=== PATIENT | male | born 1990 | race Caucasian/White ===

== ENCOUNTER 2016-12-04 02:14 | Inpatient (IN) | payer OTHER ==
[~2016-12-04] VITALS: Ht 175.3 cm; Wt 93.1 kg
--- NOTE | 2016-12-04 02:27 | PD ---
HPI Chief Complaint: Psychiatric Symptoms Time Seen by Provider: 02:19 Travel History International Travel<30 days: No Contact w/Intl Traveler<30days: No Traveled to known affect area: No History of Present Illness HPI Patient is a 26-year-old male presents with EMS and police for evaluation on a Chan act. Patient apparently was at a [facility] and according to law enforcement he admitted to a friend that he had been sleeping with his girlfriend. He states his been very depressed and has father drink himself to . He told a friend that he was going to kill himself tonight by bolusing himself insulin by his insulin pump. On arrival he is very withdrawn admits to depression and suicidal ideation but does not want to really provide any history. He will answer questions about his physical status and denies any physical complaints, denies any chest pain short of breath abdominal pain nausea vomiting diarrhea headache neck pain or back pain. According to his insulin pump E did bolus himself 14 units of regular insulin today. [facility] Past Medical History Narrative Medical Diabetes Past Surgical History Surgical History: No Previous Surgery Social History Alcohol Use: Yes Tobacco Use: No Allergies-Medications (Allergen,Severity, Reaction): Coded Allergies: UNOBTAINABLE (Unverified , 12/04/16) Review of Systems Except as stated in HPI: all other systems reviewed are Neg Physical Exam Narrative GENERAL: Well-developed well-nourished, no obvious distress. SKIN: Focused skin assessment warm/dry. HEAD: Atraumatic. Normocephalic. EYES: Pupils equal and round. No scleral icterus. No injection or drainage. ENT: No nasal bleeding or discharge. Mucous membranes pink and moist. NECK: Trachea midline. No JVD. CARDIOVASCULAR: Regular rate and rhythm. No murmur appreciated. RESPIRATORY: No accessory muscle use. Clear to auscultation. Breath sounds equal bilaterally. GASTROINTESTINAL: Abdomen soft, non-tender, nondistended. Hepatic and splenic margins not palpable. MUSCULOSKELETAL: No obvious deformities. No clubbing. No cyanosis. No edema. NEUROLOGICAL: Awake and alert. No obvious cranial nerve deficits. Motor grossly within normal limits. Normal speech. PSYCHIATRIC: Endorses suicidal ideation, depressed mood and depressed affect. Data Data Last Documented VS Vital Signs Date Time Temp Pulse Resp B/P Pulse Ox O2 Delivery O2 Flow Rate FiO2 12/04/16 06:37 87 18 130/87 97 Room Air Orders Complete Blood Count With Diff (12/04/16 02:25) Comprehensive Metabolic Panel (12/04/16 02:25) Urinalysis - C+S If Indicated (12/04/16 02:25) Electrocardiogram (12/04/16 02:25) Psych Screen (12/04/16 02:25) Drug Screen, Random Urine (12/04/16 02:25) Alcohol (Ethanol) (12/04/16 02:25) Salicylates (Aspirin) (12/04/16 02:25) Tylenol (Acetaminophen) (12/04/16 02:25) Sodium Chlor 0.9% 1000 Ml Inj (Ns 1000 M (12/04/16 02:30) Thiamine Inj (Thiamine Inj) (12/04/16 02:30) Labs Laboratory Tests Test 12/04/16 02:43 White Blood Count 5.9 TH/MM3 Red Blood Count 4.95 MIL/MM3 Hemoglobin 14.9 GM/DL Hematocrit 43.1 % Mean Corpuscular Volume 87.1 FL Mean Corpuscular Hemoglobin 30.0 PG Mean Corpuscular Hemoglobin 34.5 % Concent Red Cell Distribution Width 13.2 % Platelet Count 290 TH/MM3 Mean Platelet Volume 8.3 FL Neutrophils (%) (Auto) 68.7 % Lymphocytes (%) (Auto) 24.1 % Monocytes (%) (Auto) 5.8 % Eosinophils (%) (Auto) 0.5 % Basophils (%) (Auto) 0.9 % Neutrophils # (Auto) 4.1 TH/MM3 Lymphocytes # (Auto) 1.4 TH/MM3 Monocytes # (Auto) 0.3 TH/MM3 Eosinophils # (Auto) 0.0 TH/MM3 Basophils # (Auto) 0.1 TH/MM3 CBC Comment DIFF FINAL Differential Comment Sodium Level 141 MEQ/L Potassium Level 3.9 MEQ/L Chloride Level 105 MEQ/L Carbon Dioxide Level 25.7 MEQ/L Anion Gap 10 MEQ/L Blood Urea Nitrogen 10 MG/DL Creatinine 1.22 MG/DL Estimat Glomerular Filtration 72 ML/MIN Rate Random Glucose 128 MG/DL Calcium Level 7.8 MG/DL Total Bilirubin 0.3 MG/DL Aspartate Amino Transf 29 U/L (AST/SGOT) Alanine Aminotransferase 36 U/L (ALT/SGPT) Alkaline Phosphatase 82 U/L Total Protein 7.4 GM/DL Albumin 3.9 GM/DL Salicylates Level LESS THAN 1.7 MG/DL Acetaminophen Level LESS THAN 2.0 MCG/ML Ethyl Alcohol Level 233 MG/DL MDM Medical Decision Making Medical Screen Exam Complete: Yes Emergency Medical Condition: Yes Differential Diagnosis Hypoglycemia, alcohol intoxication, suicide attempt, depression. Narrative Course Patient roomed in the emergency department, initial sugar in the field was in the 40s, he was given D10 in the field. He was watched for 3 hours in the emergency department sugar checked multiple times and within normal limits. Basic labs are reassuring. His resting comfortably. At this time he is stable for psychiatric evaluation and disposition. Diagnosis Primary Impression: Hypoglycemia Additional Impression: Suicide attempt Condition: Stable Manish Cheema MD Dec 04, 2016 02:27
[2016-12-04] MEDS ORDERED: SODIUM CHLOR 0.9% 1000 ML INJ 1,000 ML IV ONE (02:30)
[2016-12-04] MEDS ORDERED: THIAMINE INJ 100 MG in SODIUM CHLORIDE 0.9% INJ 100 ML IV ONE (02:30)
[2016-12-04 02:56] LABS: AUTOMATED NEUTROPHIL # 4.1 TH/MM3 (1.8-7.7); BASOPHIL # 0.1 TH/MM3 (0-0.2); BASOPHIL % 0.9 % (0.0-2.0); EOSINOPHIL % 0.5 % (0.0-4.0); HEMATOCRIT 43.1 % (39.0-51.0); HEMO FLAGS DIFF FINAL; LYMPH % 24.1 % (9.0-44.0); LYMPHOCYTE # 1.4 TH/MM3 (1.0-4.8); MEAN CELL VOLUME 87.1 FL (80.0-100.0); MEAN CORPUSCULAR HGB CONC 34.5 % (32.0-36.0); MONO % 5.8 % (0.0-8.0); NEUT % 68.7 % (16.0-70.0); PLATELET COUNT 290 TH/MM3 (150-450); RED BLOOD COUNT 4.95 MIL/MM3 (4.50-5.90); RED CELL DISTRIBUTION WIDTH 13.2 % (11.6-17.2); WHITE BLOOD COUNT 5.9 TH/MM3 (4.0-11.0)
[2016-12-04 03:20] LABS: ALKALINE PHOSPHATASE 82 U/L (45-117); TOTAL BILIRUBIN ADULT 0.3 MG/DL (0.2-1.0)
[2016-12-04 03:33] LABS: ACETAMINOPHEN LESS THAN 2.0 MCG/ML (10.0-30.0); ALT (GPT) 36 U/L (12-78); ANION GAP 10 MEQ/L (5-15); AST (GOT) 29 U/L (15-37); BICARBONATE 25.7 MEQ/L (21.0-32.0); BLOOD UREA NITROGEN 10 MG/DL (7-18); CHLORIDE 105 MEQ/L (98-107); GLOMERULAR FILTRATION RATE 72 ML/MIN (>89); POTASSIUM 3.9 MEQ/L (3.5-5.1); SODIUM (NA) 141 MEQ/L (136-145)
[2016-12-04 06:37] VITALS: BP 130/87; PULSE 87; RESP 18; O2SAT 97
[2016-12-04] MEDS ORDERED: DEXTROSE 50% IN WATER 50 ML VIAL(D50) IV PRN ×2 (07:30→12:00)
[2016-12-04] MEDS ORDERED: GLUCAGON 1 MG/ML VIAL OTHER PRN ×2 (07:30→12:00)
[2016-12-04 07:57] LABS: BLOOD, URINE NEG (NEG); COMMENT (UR) CULT NOT INDICATED; CULTURE IF INDICATED CULT NOT INDICATED; GLUCOSE,URINE NEG (NEG); KETONE, URINE NEG (NEG); NITRITE,URINE NEG (NEG); PH, URINE 5.5 (5.0-8.5); URINE COLOR LIGHT-YELLOW (YELLW/STRAW)
[2016-12-04 08:08] LABS: AMPHETAMINE, URINE NEG (NEG); BARBITURATES, URINE NEG (NEG); COCAINE, URINE NEG (NEG)
[2016-12-04] MEDS ORDERED: HUMALOG SQ (08:11)
[2016-12-04] MEDS ORDERED: ALUMINUM/MAGNESIUM/SIMETH 30 ML CUP PO PRN (09:45)
[2016-12-04] MEDS ORDERED: FLUMAZENIL 0.5 MG/5 ML VIAL IV PUSH PRN (09:45)
[2016-12-04] MEDS ORDERED: LORazepam 0.5 MG TAB PO PRN (09:45)
[2016-12-04] MEDS ORDERED: LORazepam 2 MG TAB PO PRN (09:45)
[2016-12-04] MEDS ORDERED: MAGNESIUM HYDROXIDE SUSP 30 ML CUP PO PRN (09:45)
[2016-12-04] MEDS ORDERED: LORazepam 1 MG TAB PO PRN ×2 (09:45)
[2016-12-04] MEDS ORDERED: ACETAMINOPHEN 325 MG TAB PO PRN (09:45)
[2016-12-04] MEDS ORDERED: LORazepam 2 MG/ML VIAL IV PUSH PRN ×4 (09:45)
[2016-12-04] MEDS ORDERED: LORazepam 2 MG/ML VIAL IM PRN ×2 (09:45)
--- NOTE | 2016-12-04 09:55 | HHI.HP ---
Provisional Diagnosis Admission Date [place] I. Adjustment disorder with depressed mood, r/o major depressive disorder, alcohol use disorder [place] II. Deferred [place] III. Insulin-dependent diabetes mellitus [place] IV. Poor social and family support [place] V. 40 Certification of Person's Competence To Provide Express and Informed Consent I have personally examined Toño Coelho , a person being served at [facility] on, Dec 04, 2016 09:43. Express and informed consent means consent voluntarily given in writing, by a competent person, after sufficient explanation and disclosure of the subject matter involved to enable the person to make a knowing and willful decision without any element of force, fraud, deceit, duress, or other form of constraint or coercion. This person is 18 years of age or older, is not now known to be incompetent to consent to treatment with a guardian advocate, and does not have a health care surrogate or proxy currently making medical treatment decisions. I have found this person to be one of the following: [] Competent to provide express and informed consent, as defined above, for voluntary admission to this facility and is competent to provide express and informed consent for treatment. He/she has the consistent capacity to make well reasoned, willful, and knowing decisions concerning his or her medical or mental health treatment. The person fully and consistently understands the purpose of the admission for examination/placement and is fully capable of personally exercising all rights assured under [place] [] Incompetent to provide express and informed consent to voluntary admission, and this is incompetent to provide express and informed consent to treatment. The person must be transferred to involuntary status and a petition for a guardian advocate filed with the Circuit Court. [X] Refusing to provide express and informed consent to voluntary admission but is competent to provide express and informed consent for treatment. The person must be discharged or transferred to involuntary status. Form shall be completed within 24 hours of a person's arrival at the receiving facility and filed in the clinical record of each person: 1. Admitted on a voluntary basis 2. Permitted to provide express and informed consent to his/her own treatment 3. Allowed to transfer from involuntary to voluntary status 4. Prior to permitting a person to consent to his or her own treatment after having been previously found incompetent to consent to treatment. History of Present Illness Capacity: Has Capacity HPI The patient is a 26-year-old man, domiciled with friends and [place], employed, single, without any previous psychiatric history, no previous psychiatric hospitalizations, no previous suicidal attempts, alcohol use disorder, medical history of insulin-dependent diabetes mellitus, who presents with EMS and police for evaluation on a Chan act. Patient apparently was at a [facility] and according to law enforcement he admitted to a friend that he had been sleeping with his girlfriend. He states his been very depressed and has father drink himself to . He told a friend that he was going to kill himself tonight by bolusing himself insulin by his insulin pump to . On arrival he is very withdrawn admits to depression and suicidal ideation but does not want to really provide any history. With redirection patient does say that he preferred to be and he doesn't want to live anymore at this moment, but refused to answer any further question. Patient also reports that he was drinking last night, but not drunk. He denies the use of illicit drugs, reports use of occasional alcohol. Review of Systems Constitutional: DENIES: Diaphoretic episodes, Fatigue, Fever, Weight gain, Weight loss, Chills, Dizziness, Change in appetite, Night Sweats Endocrine: DENIES: Heat/cold intolerance, Polydipsia, Polyuria, Polyphagia Eyes: DENIES: Blurred vision, Diplopia, Eye inflammation, Eye pain, Vision loss , Photosensitivity, Double Vision Ears, nose, mouth, throat: DENIES: Tinnitus, Hearing loss, Vertigo, Nasal discharge, Oral lesions, Throat pain, Hoarseness, Ear Pain, Running Nose, Epistaxis, Sinus Pain, Toothache, Odynophagia Respiratory: DENIES: Apneas, Cough, Snoring, Wheezing, Hemoptysis, Sputum production, Shortness of breath Cardiovascular: DENIES: Chest pain, Palpitations, Syncope, Dyspnea on Exertion , PND, Lower Extremity Edema, Orthopnea, Claudication Gastrointestinal: DENIES: Abdominal pain, Black stools, Bloody stools, Constipation, Diarrhea, Nausea, Vomiting, Difficulty Swallowing, Anorexia Musculoskeletal: DENIES: Joint pain, Muscle aches, Stiffness, Joint Swelling, Back pain, Neck pain Integumentary: DENIES: Abnormal pigmentation, Nail changes, Pruritus, Rash Hematologic/lymphatic: DENIES: Bruising, Lymphadenopathy Immunologic/allergic: DENIES: Eczema, Urticaria Psychiatric: DENIES: Anxiety, Confusion, Mood changes, Depression, Hallucinations, Agitation, Suicidal Ideation, Homicidal Ideation, Delusions Past Psych History Violence risk - self (6 mos) Increased Substance Abuse History Drugs/Alcohol past 12 months Use alcohol occasionally Past Family Social History Coded Allergies: UNOBTAINABLE (Unverified , 12/04/16) Reported Medications Insulin Lispro (Human) Inj (Humalog Inj)1,000 Unit/10 Ml Vial1-9 Units SQ ACHS #1 VIAL Ref 0 Max dose at bedtime:( )units; sugars< 70,(0)units; sugars 150-199,(1)unit; sugars 200-249,(3)units; sugars 250-299,(5)units; sugars 300-349,(7)units; sugars more than 349,(9)units. 12/04/16 Current Medications Medications (Trade) Dose Ordered Sig/Ovi Route Start Time Stop Time Status Last Admin (D50w (Vial) Inj) 50 ml UNSCH PRN IV 12/04/16 07:30 (Glucagon Inj) 1 mg UNSCH PRN OTHER 12/04/16 07:30 Social History Patient is from [place], single, he is employed, lives with friends in [place] Patient's Strengths (min. 2) Under observation Physical Exam No withdrawal symptoms, no tremors, no EPS, no stiffness present Vital Signs Vital Signs Date Time Temp Pulse Resp B/P Pulse Ox O2 Delivery O2 Flow Rate FiO2 12/04/16 06:37 87 18 130/87 97 Room Air Lab Results Labs Laboratory Tests Test 12/04/16 02:43 White Blood Count 5.9 TH/MM3 Red Blood Count 4.95 MIL/MM3 Hemoglobin 14.9 GM/DL Hematocrit 43.1 % Mean Corpuscular Volume 87.1 FL Mean Corpuscular Hemoglobin 30.0 PG Mean Corpuscular Hemoglobin 34.5 % Concent Red Cell Distribution Width 13.2 % Platelet Count 290 TH/MM3 Mean Platelet Volume 8.3 FL Neutrophils (%) (Auto) 68.7 % Lymphocytes (%) (Auto) 24.1 % Monocytes (%) (Auto) 5.8 % Eosinophils (%) (Auto) 0.5 % Basophils (%) (Auto) 0.9 % Neutrophils # (Auto) 4.1 TH/MM3 Lymphocytes # (Auto) 1.4 TH/MM3 Monocytes # (Auto) 0.3 TH/MM3 Eosinophils # (Auto) 0.0 TH/MM3 Basophils # (Auto) 0.1 TH/MM3 CBC Comment DIFF FINAL Differential Comment Sodium Level 141 MEQ/L Potassium Level 3.9 MEQ/L Chloride Level 105 MEQ/L Carbon Dioxide Level 25.7 MEQ/L Anion Gap 10 MEQ/L Blood Urea Nitrogen 10 MG/DL Creatinine 1.22 MG/DL Estimat Glomerular Filtration 72 ML/MIN Rate Random Glucose 128 MG/DL Calcium Level 7.8 MG/DL Total Bilirubin 0.3 MG/DL Aspartate Amino Transf 29 U/L (AST/SGOT) Alanine Aminotransferase 36 U/L (ALT/SGPT) Alkaline Phosphatase 82 U/L Total Protein 7.4 GM/DL Albumin 3.9 GM/DL Salicylates Level LESS THAN 1.7 MG/DL Acetaminophen Level LESS THAN 2.0 MCG/ML Ethyl Alcohol Level 233 MG/DL Mental Status Examination Appearance man, multiple tattoos, athletic, uncooperative, oppositional and resistant Speech: Hesitant, Slow Memory: Unremarkable Thought Process: Goal Directed, Linear Thought Content: Unremarkable Language Adequate grammar and structural sentences and vocabulary Fund of Knowledge Limited due to lack of cooperation Attention and Concentration: Abnormal Suicidal Ideation: Yes Previous Suicide Attempts: Yes Previous Homicide Attempts: No Judgment: Poor Affect: Sad Affect if Inappropriate: Blunt Mood: Sad Motor Activity: Normal gait Assessment & Plan Problem List: (1) Adjustment disorder with depressed mood Assessment & Plan: On psychiatric evaluation patient is reluctant to provide meaningful information to complete the psychiatric assessment. However, patient does report repeatedly suicidal ideation with the plan of overdosing with insulin. On longitudinal observation in the ER the patient has been isolative, not talking, objectively depressed, staring. Since patient seems to pose an elevator risk of danger to himself, he will be admitted in the med psych unit for stabilization and safety. Will consult psychiatry for second opinion, hospital is to follow-up insulin-dependent diabetes, since patient endorses occasional use of alcohol and BAL was 233, will place in [facility]. 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 ICD Code: F43.21 Assessment & Plan Estimated LOS: Ben Arriaga MD Dec 04, 2016 09:54
[2016-12-04] MEDS: NICOTINE 21 MG/24 HR PATCH T-DERMAL SCH (11:00)
[2016-12-04 11:31] VITALS: BP 146/92; PULSE 114; RESP 18; O2SAT 99
[2016-12-04] MEDS: INSULIN ASPART SUPPLEMENTAL SCALE SQ SCH ×3 (11:37→20:24)
--- NOTE | 2016-12-04 12:52 | PD.CONS ---
[facility] By Ben Arriaga M.D. Reason for Consult diabetes type I Primary Care Physician No Primary Care Physician Diagnoses: History of Present Illness Written by Zeeshan Bocanegra PA-C, acting as scribe for Dr. Robby Moser, on 12/04/16 at 12:52. Mr. Coelho is 26 yo with history of Diabetes Mellitus I and no other health history. Per the medical record, he has been depressed for several months. Early on the evening of 12/03/16 he was at a alliance party and told a friend he was depressed and considering giving himself a fatal bolus of insulin. He was subsequently brought to [facility] [place] and police under Chan act. Upon current interview Mr. Coelho reported having diabetes since age 7 as well as being "born with anxiety and depression"; A1c is reported to be "about 7 ". He denied fever, cough, shortness of breath, abdominal pain, NVD, altered bowel or bladder habits. He noted depression has been present "for a while." A 10 pt ROS was completed and, except as noted above, was negative. Review of Systems Except as stated in HPI: all other systems reviewed are Neg Past Family Social History Allergies: Coded Allergies: No Known Allergies (Unverified , 12/04/16) Past Medical History Diabetes mellitus I since age 7. Anxiety and depression. Past Surgical History Pt denied surgical history. Reported Medications Reported Meds & Active Scripts Active Reported Humalog Inj (Insulin Human Lispro) 1,000 Unit/10 Ml Vial 1-9 Units SQ ACHS Max dose at bedtime:( )units; sugars< 70,(0)units; sugars 150-199,(1)unit; sugars 200-249,(3)units; sugars 250-299,(5)units; sugars 300-349,(7)units; sugars more than 349,(9)units. Active Ordered Medications Current Medications Medications (Trade) Dose Ordered Sig/Ovi Route Start Time Stop Time Status Last Admin (D50w (Vial) Inj) 50 ml UNSCH PRN IV 12/04/16 07:30 (Glucagon Inj) 1 mg UNSCH PRN OTHER 12/04/16 07:30 (Ativan) 1 mg Q6H PRN PO 12/04/16 09:45 (Ativan Inj) 1 mg Q6H PRN IM 12/04/16 09:45 (Tylenol) 650 mg Q4H PRN PO 12/04/16 09:45 (Milk Of Magnesia Liq) 30 ml DAILY PRN PO 12/04/16 09:45 (Mag-Al Plus Susp Liq) 30 ml Q6H PRN PO 12/04/16 09:45 (Habitrol 21 Mg Patch.24 Hr) 1 patch DAILY T-DERMAL 12/04/16 11:00 (Romazicon Inj) 0.2 mg Q1M PRN IV PUSH 12/04/16 09:45 (Ativan) 1 mg Q4H PRN PO 12/04/16 09:45 (Ativan Inj) 1 mg Q4H PRN IV PUSH 12/04/16 09:45 (Ativan) 2 mg Q2H PRN PO 12/04/16 09:45 (Ativan Inj) 2 mg Q2H PRN IV PUSH 12/04/16 09:45 (Ativan Inj) 2 mg Q1H PRN IV PUSH 12/04/16 09:45 (Ativan Inj) 2 mg Q15M PRN IV PUSH 12/04/16 09:45 Miscellaneous Information 1 HS T-DERMAL 12/04/16 21:00 Family History Father- had depression and alcoholism, at 56 yo. Mother-Depression no other health issues reported. Social History Pt denied nicotine use. Alcohol use was denied. Illicit/Recreational drug use was denied. Physical Exam Vital Signs Vital Signs Date Time Temp Pulse Resp B/P Pulse Ox O2 Delivery O2 Flow Rate FiO2 12/04/16 11:31 114 18 146/92 99 Room Air 12/04/16 06:37 87 18 130/87 97 Room Air 12/04/16 02:25 18 Physical Exam GENERAL: This is a well-nourished, well-developed patient, in no mild emotional distress. SKIN: No rashes, ecchymoses or lesions. Cool and dry. Multiple tattoos present. HEAD: Atraumatic. Normocephalic. No temporal or scalp tenderness. EYES: Pupils equal round and reactive. Extraocular motions intact. No scleral icterus. No injection or drainage. ENT: Nose without bleeding or purulent drainage. Airway patent. NECK: Trachea midline. No lymphadenopathy. Supple and nontender. CARDIOVASCULAR: Regular rate and rhythm without murmurs, gallops, or rubs. RESPIRATORY: Clear to auscultation. Breath sounds equal bilaterally. No wheezes , rales, or rhonchi. GASTROINTESTINAL: Abdomen soft, non-tender, nondistended. No hepato- splenomegaly or guarding. MUSCULOSKELETAL: Extremities without clubbing, cyanosis, or edema. No joint tenderness, effusion, or edema noted. NEUROLOGICAL: Awake and alert. Cranial nerves II through XII intact. Motor and sensory grossly within normal limits. Five out of 5 muscle strength in all muscle groups. Speech was clear and fluent. Affect flat. Mood depressed. Laboratory Laboratory Tests Test 12/04/16 12/04/16 02:43 07:25 White Blood Count 5.9 Red Blood Count 4.95 Hemoglobin 14.9 Hematocrit 43.1 Mean Corpuscular Volume 87.1 Mean Corpuscular Hemoglobin 30.0 Mean Corpuscular Hemoglobin 34.5 Concent Red Cell Distribution Width 13.2 Platelet Count 290 Mean Platelet Volume 8.3 Neutrophils (%) (Auto) 68.7 Lymphocytes (%) (Auto) 24.1 Monocytes (%) (Auto) 5.8 Eosinophils (%) (Auto) 0.5 Basophils (%) (Auto) 0.9 Neutrophils # (Auto) 4.1 Lymphocytes # (Auto) 1.4 Monocytes # (Auto) 0.3 Eosinophils # (Auto) 0.0 Basophils # (Auto) 0.1 CBC Comment DIFF FINAL Differential Comment Sodium Level 141 Potassium Level 3.9 Chloride Level 105 Carbon Dioxide Level 25.7 Anion Gap 10 Blood Urea Nitrogen 10 Creatinine 1.22 Estimat Glomerular Filtration 72 Rate Random Glucose 128 Calcium Level 7.8 Total Bilirubin 0.3 Aspartate Amino Transf 29 (AST/SGOT) Alanine Aminotransferase 36 (ALT/SGPT) Alkaline Phosphatase 82 Total Protein 7.4 Albumin 3.9 Salicylates Level LESS THAN 1.7 Acetaminophen Level LESS THAN 2.0 Ethyl Alcohol Level 233 Urine Color LIGHT-YELLOW Urine Turbidity CLEAR Urine pH 5.5 Urine Specific [place] 1.008 Urine Protein NEG Urine Glucose (UA) NEG Urine Ketones NEG Urine Occult Blood NEG Urine Nitrite NEG Urine Bilirubin NEG Urine Urobilinogen LESS THAN 2.0 Urine Leukocyte Esterase NEG Urine WBC 1 Microscopic Urinalysis Comment CULT NOT INDICATED Urine Opiates Screen NEG Urine Barbiturates Screen NEG Urine Amphetamines Screen NEG Urine Benzodiazepines Screen NEG Urine Cocaine Screen NEG Urine Cannabinoids Screen NEG Result Diagram: 12/04/16 0243 12/04/16 0243 Assessment and Plan Assessment and Plan Mr. Coelho is 26 yo with history of Diabetes Mellitus I and no other health history. Per the medical record, he has been depressed for several months. Early on the evening of 12/03/16 he was at a alliance party and told a friend he was depressed and considering giving himself a fatal bolus of insulin. He was subsequently brought to [facility] [place] and police under Chan act. Depression Anxiety Suicidal Ideation -managed by psychiatry. Diabetes Mellitus type I -Low dose sliding scale insulin. -Finger sticks q ac and hs -Hemoglobin A1c ordered, Thank you for the consult. Hospitalist team will continue to follow this patient. This note was transcribed by kota Bocanegra PA-C. I, Dr. Breanna Moser personally performed the history, physical exam, and medical decision making; and confirmed the accuracy of the information in the transcribed note. Authenticated by Dr. Breanna Moser on 12/04/16 at 12:52. This note was transcribed by kota Bocanegra PA-C. I, Dr. Breanna Moser personally performed the history, physical exam, and medical decision making; and confirmed the accuracy of the information in the transcribed note. Authenticated by Dr. Breanna Moser on 12/04/16 at 12:52. Discussed Condition With Patient Zeeshan Bocanegra Jr. Dec 04, 2016 12:52 Breanna Moser MD Dec 04, 2016 13:51
[2016-12-04 14:08] VITALS: BP 136/73; PULSE 90; RESP 18; TEMP 98.5; O2SAT 98
[2016-12-04] MEDS ORDERED: NON-FORMULARY DRUG (Insulin Lispro (Human) Inj (Humalog Inj) 0 UNITS) SQ SCH (16:00)
--- NOTE | 2016-12-04 17:06 | EKG ---
Date Performed: 12/04/2016 Time Performed: 02:39:27 PTAGE: 26 years EKG: Sinus rhythm NORMAL ECG NO PREVIOUS TRACING DOCTOR: Kurtis Kramer Interpretating Date/Time 12/04/2016 17:04:33
[2016-12-04] MEDS: REMOVE OLD NICODERM (NICOTINE) PATCH T-DERMAL SCH (20:20)
[2016-12-05] MEDS: INSULIN ASPART SUPPLEMENTAL SCALE SQ SCH ×4 (06:23→21:54)
[2016-12-05] MEDS: NICOTINE 21 MG/24 HR PATCH T-DERMAL SCH (09:00)
[2016-12-05] MEDS: INSULIN DETEMIR 100 UNITS/ML VIAL SQ SCH ×2 (09:15→21:55)
--- NOTE | 2016-12-05 11:10 | PD.PSY.CON ---
Provisional Diagnosis Admission Date Dec 04, 2016 at 9:43 am [place] I. Adjustment disorder with depressed mood, r/o major depressive disorder, alcohol use disorder [place] II. Deferred [place] III. Insulin-dependent diabetes mellitus [place] IV. Poor social and family support [place] V. 40 History of Present Illness Service Psychiatry Consult Requested By Primary Care Physician No Primary Care Physician HPI Pt seen and discussed with staff. He was admitted to [facility] under BA secondary to suicidal ideation with plan. Pt was intoxicated at time of presentation. The patient is a 26-year-old man, domiciled with friends and [place], employed, single, without any previous psychiatric history, no previous psychiatric hospitalizations, no previous suicidal attempts, alcohol use disorder, medical history of insulin-dependent diabetes mellitus, who presents with EMS and police for evaluation on a Chan act. Patient apparently was at a bachelor green party [facility] and according to law enforcement he admitted to a friend that he had been sleeping with his girlfriend. He states his been very depressed and has father drink himself to . He told a friend that he was going to kill himself tonight by bolusing himself insulin by his insulin pump to . On arrival he is very withdrawn admits to depression and suicidal ideation but does not want to really provide any history. With redirection patient does say that he preferred to be and he doesn't want to live anymore at this moment, but refused to answer any further question. Patient also reports that he was drinking last night, but not drunk. He denies the use of illicit drugs, reports use of occasional alcohol. Past Family Social History Coded Allergies: No Known Allergies (Unverified , 12/04/16) Reported Medications Insulin Lispro (Human) Inj (Humalog Inj)1,000 Unit/10 Ml Vial1-9 Units SQ ACHS #1 VIAL Ref 0 Max dose at bedtime:( )units; sugars< 70,(0)units; sugars 150-199,(1)unit; sugars 200-249,(3)units; sugars 250-299,(5)units; sugars 300-349,(7)units; sugars more than 349,(9)units. 12/04/16 Current Medications Medications (Trade) Dose Ordered Sig/Ovi Route Start Time Stop Time Status Last Admin (D50w (Vial) Inj) 50 ml UNSCH PRN IV 12/04/16 07:30 (Glucagon Inj) 1 mg UNSCH PRN OTHER 12/04/16 07:30 (Ativan) 1 mg Q6H PRN PO 12/04/16 09:45 12/04/16 16:59 (Ativan Inj) 1 mg Q6H PRN IM 12/04/16 09:45 (Tylenol) 650 mg Q4H PRN PO 12/04/16 09:45 (Milk Of Magnesia Liq) 30 ml DAILY PRN PO 12/04/16 09:45 (Mag-Al Plus Susp Liq) 30 ml Q6H PRN PO 12/04/16 09:45 (Habitrol 21 Mg Patch.24 Hr) 1 patch DAILY T-DERMAL 12/04/16 11:00 (Romazicon Inj) 0.2 mg Q1M PRN IV PUSH 12/04/16 09:45 (Ativan) 1 mg Q4H PRN PO 12/04/16 09:45 (Ativan Inj) 1 mg Q4H PRN IV PUSH 12/04/16 09:45 (Ativan) 2 mg Q2H PRN PO 12/04/16 09:45 (Ativan Inj) 2 mg Q2H PRN IV PUSH 12/04/16 09:45 (Ativan Inj) 2 mg Q1H PRN IV PUSH 12/04/16 09:45 (Ativan Inj) 2 mg Q15M PRN IV PUSH 12/04/16 09:45 Miscellaneous Information 1 HS T-DERMAL 12/04/16 21:00 (Levemir Inj) 5 units Q12HR SQ 12/05/16 09:15 12/05/16 09:15 Patient's Strengths (min. 2) Under observation Physical Exam Vital Signs Vital Signs Date Time Temp Pulse Resp B/P Pulse Ox O2 Delivery O2 Flow Rate FiO2 12/04/16 14:08 98.5 90 18 136/73 98 12/04/16 11:31 Room Air I/O 12/04/16 12/04/16 12/05/16 08:00 16:00 00:00 Output Total 1900 ml Balance -1900 ml Mental Status Examination Speech: Hesitant, Slow Memory: Unremarkable Thought Process: Goal Directed, Linear Thought Content: Unremarkable Attention and Concentration: Abnormal Suicidal Ideation: Yes Previous Suicide Attempts: Yes Previous Homicide Attempts: No Judgment: Poor Affect: Sad Affect if Inappropriate: Blunt Mood: Sad Motor Activity: Normal gait Assessment & Plan Problem List: (1) Adjustment disorder with depressed mood ICD Code: F43.21 Assessment & Plan Estimated LOS: Claudia Samano MD Dec 05, 2016 11:10
[2016-12-05 12:23] LABS: ANION GAP 11 MEQ/L (5-15); BICARBONATE 25.2 MEQ/L (21.0-32.0); BLOOD UREA NITROGEN 16 MG/DL (7-18); CHLORIDE 97 MEQ/L (98-107); GLOMERULAR FILTRATION RATE 83 ML/MIN (>89); HDL CHOLESTEROL 56.5 MG/DL (40.0-60.0); LDL CHOLESTEROL 59 MG/DL (0-99); POTASSIUM 4.2 MEQ/L (3.5-5.1); SODIUM (NA) 133 MEQ/L (136-145)
--- NOTE | 2016-12-05 13:56 | HHI.PYPN ---
Subjective Remarks Pt seen and discussed with staff. Pt reports that he is feeling better now that he is sober. He denies SI today and attributes symptoms to intoxication. Pt states that he had not drank in over a year and came to [facility] for a bachelor constitution party. He states that he got very drunk and also wasn't following diabetic diet. He states that he argued with his friend over women and began having suicidal thoughts. He admits to telling admitting doctor that he wanted to harmself. "I was sobering up and angry" He has not been aggressive and has been compliant with treatment per staff. Objective Alert: Yes [place]: Person, Place, Date, Situation Mood: Calm Affect: Restricted Memory Intact: Immediate, Recent, Remote Hallucinations: Other (none) Delusions: No Delusion Type: Other (none) Suicidal: Ideation (denies today) Homicidal: Ideation (denies today) Insight/Judgment poor Labs Test 12/05/16 10:50 Sodium Level 133 MEQ/L Potassium Level 4.2 MEQ/L Chloride Level 97 MEQ/L Carbon Dioxide Level 25.2 MEQ/L Anion Gap 11 MEQ/L Blood Urea Nitrogen 16 MG/DL Creatinine 1.08 MG/DL Estimat Glomerular Filtration 83 ML/MIN Rate Random Glucose 294 MG/DL Calcium Level 9.1 MG/DL Triglycerides Level 96 MG/DL Cholesterol Level 135 MG/DL LDL Cholesterol 59 MG/DL HDL Cholesterol 56.5 MG/DL Cholesterol/HDL Ratio 2.38 RATIO Vitals/IOs Vital Signs Date Time Temp Pulse Resp B/P Pulse Ox O2 Delivery O2 Flow Rate FiO2 12/04/16 14:08 98.5 90 18 136/73 98 12/04/16 11:31 Room Air Intake and Output 12/04/16 12/04/16 12/05/16 08:00 16:00 00:00 Output Total 1900 ml Balance -1900 ml Assessment & Plan Problem List: (1) Adjustment disorder with depressed mood ICD Code: F43.21 Assessment & Plan Continue current tx plan. Pt agree to voluntary admission. Monitor overnight to ensure safety. Estimated LOS: days Justification for Cont. Inpt. monitoring for safety Claudia Samano MD Dec 05, 2016 13:56
[2016-12-05 18:26] VITALS: BP 128/72; PULSE 92; RESP 16; TEMP 98.5; O2SAT 99
[2016-12-05] MEDS: REMOVE OLD NICODERM (NICOTINE) PATCH T-DERMAL SCH (21:00)
[2016-12-06 06:00] VITALS: BP 118/69; PULSE 73; RESP 18; TEMP 97.8; O2SAT 98
[2016-12-06] MEDS: INSULIN ASPART SUPPLEMENTAL SCALE SQ SCH ×2 (06:42→11:12)
[2016-12-06] MEDS: INSULIN DETEMIR 100 UNITS/ML VIAL SQ SCH (08:13)
[2016-12-06] MEDS: NICOTINE 21 MG/24 HR PATCH T-DERMAL SCH (08:45)
--- NOTE | 2016-12-06 16:33 | HHI.DS ---
Psychiatry Discharge Summary Inpatient Psychiatric care?: Yes Advance Directive: No Reason Not Provided: patient refused Mental Health AdvanceDirective: No Health Care Proxy: No Admission Admission Date Dec 04, 2016 at 09:43 Admission Diagnosis: (1) Adjustment disorder with depressed mood ICD Code: F43.21 Brief History Pt seen and discussed with staff. He was admitted to [facility] [place] BA secondary to suicidal ideation with plan. Pt was intoxicated at time of presentation. The patient is a 26-year-old man, domiciled with friends and [place], employed, single, without any previous psychiatric history, no previous psychiatric hospitalizations, no previous suicidal attempts, alcohol use disorder, medical history of insulin-dependent diabetes mellitus, who presents with EMS and police for evaluation on a Chan act. Patient apparently was at a [employer] green party [facility] and according to law enforcement he admitted to a friend that he had been sleeping with his girlfriend. He states his been very depressed and has father drink himself to . He told a friend that he was going to kill himself tonight by bolusing himself insulin by his insulin pump to . On arrival he is very withdrawn admits to depression and suicidal ideation but does not want to really provide any history. With redirection patient does say that he preferred to be and he doesn't want to live anymore at this moment, but refused to answer any further question. Patient also reports that he was drinking last night, but not drunk. He denies the use of illicit drugs, reports use of occasional alcohol. Tobacco Use In Past 30 Days: No Tobacco Past 30 Days Alcohol Use: Monthly or Less Hospital Course The patient is a 26-year-old man, domiciled with friends and [place], employed, single, without any previous psychiatric history, no previous psychiatric hospitalizations, no previous suicidal attempts, alcohol use disorder, medical history of insulin-dependent diabetes mellitus, who presents with EMS and police for evaluation on a Chan act who upon evaluation in the ED endorsed feeling depressed along with thoughts of not wanting to be alive in the context of recent alcohol intoxication. Patient was held over the weekend for observation of mood and behavior and safety. Patient upon follow up reported having expressed feeling depressed with SI due to feeling angry and intoxicated in the context of recent argument with friend. Patient continued to deny feeling depressed or having SI throughout admission and no longer being intoxicated. Patient did not have any behavioral disturbances while on the unit , noted to be cooperative with staff, with stable mood. Collateral was obtained by team which patients girlfriend was contacted and had reported no safety concerns with the patient or mental health history that would be of concern and felt safe to have him return home and will assist patient with follow up once he returned back home to [place]. Patient upon discharge, stated feeling well, denied any depressive symptoms or suicidality and is future oriented to returning home and seeking outpatient treatment for follow up. He reports continuing adhering with medical treatment for his diabetes and denies SI, HI, AVH or delusions at this time. Patient at this time psychiatric stable for discharge. Patient to continue current medical treatment for the diabetes and encouraged to engage in outpatient follow-up for continuity of care. Patient denies SI, HI, AVH or delusions. Patient advised to call 911 or return to an emergency room in case of emergency. Patient agrees with plan. Results Blood Pressure 118 / 69 Vital Signs Date Time Temp Pulse Resp B/P Pulse Ox O2 Delivery O2 Flow Rate FiO2 12/06/16 06:00 97.8 73 18 118/69 98 12/04/16 11:31 Room Air Laboratory Tests Test 12/04/16 12/05/16 02:43 10:50 Estimat Glomerular Filtration 72 ML/MIN (>89) 83 ML/MIN (>89) Rate Random Glucose 128 MG/DL 294 MG/DL (74-106) (74-106) Calcium Level 7.8 MG/DL (8.5-10.1) Salicylates Level LESS THAN 1.7 MG/DL (2.8-20.0) Acetaminophen Level LESS THAN 2.0 MCG/ML (10.0-30.0) Ethyl Alcohol Level 233 MG/DL (0-5) Sodium Level 133 MEQ/L (136-145) Chloride Level 97 MEQ/L (98-107) Laboratory Results Test 12/05/16 10:50 Triglycerides Level 96 MG/DL (42-150) Cholesterol Level 135 MG/DL (120-200) LDL Cholesterol 59 MG/DL (0-99) HDL Cholesterol 56.5 MG/DL (40.0-60.0) Summary of Procedures None Pending results at discharge: No Medications # of Antipsychotic meds at D/C: 0 Approp Antipsych med options 1 - Minimum of three failed multiple trials of monotherapy. 2 - Documented plan to taper to monotherapy due to previous use of multiple meds OR cross-taper in progress at D/C. 3 - Documentation of augmentation of Clozapine. 4 - Justification other than those listed in allowable values 1-3, document here : Discharge Discharge Date: Dec 06, 2016 Discharge Diagnosis: (1) Adjustment disorder with depressed mood Diagnosis: Principal ICD Code: F43.21 Mental Status Exam at Disch Patient appears stated age, in casual clothing, calm and cooperative with interview. Fair hygiene and grooming, fair eye contact, speech normal rate tone and prosody, mood "good", affect euthymic, thought process linear and organized and future oriented, thought content denies SI, HI, AVH or delusions, insight impulse control and judgment are fair, eye which fluent spontaneous, alert and oriented 3 Pt Condition on Discharge: Fair Discharge Disposition: Discharge Home Discharge Instructions Diet Instructions: Diabetic Diet Activities you can perform: Regular-No Restrictions Scheduled Appointment: [place] Appointment Date: Dec 07, 2016 Discharge Time > 30 minutes Discharge/Advance Care Plan Health Problems: (1) Adjustment disorder with depressed mood Goals to promote your health * To prevent worsening of your condition and complications * To maintain your health at the optimal level Directions to meet your goals Take your medications as prescribed Follow your dietary instruction Follow activity as directed Keep your appointments as scheduled Take your immunizations and boosters as scheduled If your symptoms worsen call your PCP, if no PCP go to Urgent Care Center or Emergency Room For / questions related to your inpatient stay or results of tests pending at discharge, please contact Dr. Doug Stone at Smoking is Dangerous to Your Health. Avoid second hand smoking Doug Stone MD Dec 06, 2016 16:33
[2016-12-06 16:42] LABS: HEMOGLOBIN A1a 1.3 %; HEMOGLOBIN A1b 2.1 %; HEMOGLOBIN Ao 80.2 %; HEMOGLOBIN LA1C 3.4 %; HEMOGLOBIN P3 4.5 %
== END 2016-12-06 15:35 | disposition home or self-care (01) | DRG 881 ==
LOC: NEPE 02:14 → NEDA 09:43 → H270 13:58 → H260 12-05 13:10
PROVIDERS: ADMIT Student in an Organized Health Care Education/Training Program; ATTEND Student in an Organized Health Care Education/Training Program
DX: F43.21 Adjustment disorder with depressed mood (principal); E10.649 Type 1 diabetes mellitus with hypoglycemia without coma; Z79.4 Long term (current) use of insulin; Z81.8 Family history of other mental and behavioral disorders; Z72.89 Other problems related to lifestyle; Y90.7 Blood alcohol level of 200-239 mg/100 ml
CPT/HCPCS: 80048; 80053; 80061; 80307; 81001; 82948; 83036; 85025; 93005; 96374; J1815; J3411; J7030